=== PATIENT | male | born 1960 | race Caucasian/White ===

== ENCOUNTER 2024-01-05 21:31 | Emergency (ER) | payer OTHER ==
[~2024-01-05] VITALS: Ht 175.3 cm; Wt 100.0 kg
[2024-01-05 23:31] VITALS: PULSE 118; O2SAT 96
[2024-01-05] MEDS: HYDROmorphone HCL 2 MG/ML VL/or syr IM ONE (23:41)
[2024-01-06 00:05] VITALS: TEMP 97.5; O2SAT 97
[2024-01-06 00:11] VITALS: BP 152/66; PULSE 110; RESP 94
== END 2024-01-06 00:32 | disposition short-term general hospital (02) ==
LOC: EDBD 21:31 → ER 21:31
DX: S06.6X0A Traumatic subarachnoid hemorrhage without loss of consciousness, initial encounter (principal); S01.81XA Laceration without foreign body of other part of head, initial encounter; Z79.899 Other long term (current) drug therapy; W11.XXXA Fall on and from ladder, initial encounter; Y93.89 Activity, other specified; Y92.098 Other place in other non-institutional residence as the place of occurrence of the external cause; Y99.8 Other external cause status
CPT/HCPCS: 70450; 70486; 71250; 72125; 73090; 73130; 73200; 74176; 93005; 96372; 99285; J1170